=== PATIENT | male | born 1990 | race Hispanic/Latino ===

== ENCOUNTER 2022-09-09 13:47 | Emergency (ER) | payer OTHER ==
[~2022-09-09] VITALS: Ht 167.6 cm; Wt 81.6 kg
[2022-09-09 14:32] VITALS: BP 106/63
[2022-09-09] MEDS ORDERED: FAMO20TA8 PO (14:42)
[2022-09-09] MEDS ORDERED: DIPH25TA22 PO (14:42)
[2022-09-09] MEDS ORDERED: PRED50TA2 PO (14:42)
== END 2022-09-09 15:00 | disposition home or self-care (01) ==
LOC: EDH 13:47
DX: R45.0 Nervousness (principal); R06.4 Hyperventilation; T63.441A Toxic effect of venom of bees, accidental (unintentional), initial encounter; Y92.89 Other specified places as the place of occurrence of the external cause